=== PATIENT | female | born 1970 | race Caucasian/White ===

== ENCOUNTER → 2018-02-16 15:02 | Outpatient (CLI) | payer OTHER, SELFPAY ==
--- NOTE | 2018-02-16 | DI.MG.S_ITS ---
BILATERAL DIGITAL SCREENING MAMMOGRAM 3D/2D WITH CAD: 02/16/2018 CLINICAL: Routine screening. Comparison is made to exams dated: 01/28/2017 mammogram, 12/22/2015 mammogram - [facility], and 10/14/2014 mammogram - [facility]. The tissue of both breasts is heterogeneously dense. This may lower the sensitivity of mammography. Current study was also evaluated with a Computer Aided Detection (CAD) system. No significant masses, calcifications, or other findings are seen in either breast. There has been no significant interval change. IMPRESSION: NEGATIVE There is no mammographic evidence of malignancy. A 1 year screening mammogram is recommended. This exam was interpreted at Station ID: [id number]. NOTE: For mammograms, a report in lay terms will be sent to the patient. Approximately 15% of breast malignancies will not be visualized mammographically. In the management of a palpable breast mass, a negative mammogram must not discourage biopsy of a clinically suspicious lesion. Electronically Signed By: Nancy fournier/rubina:02/16/2018 15:42:19 letter sent: Normal Exam ACR BI-RADS Category 1: Negative 3341F
== END ==
PROVIDERS: PCP Physician Assistant; Visit Provider Physician Assistant
DX: Z12.31 Encounter for screening mammogram for malignant neoplasm of breast (principal)
CPT/HCPCS: 77063; 77067

== ENCOUNTER → 2019-03-23 07:37 | Outpatient (CLI) | payer OTHER, SELFPAY ==
--- NOTE | 2019-03-23 | DI.MG.S_ITS ---
BILATERAL DIGITAL SCREENING MAMMOGRAM 3D/2D WITH CAD: 03/23/2019 CLINICAL: Routine screening. Comparison is made to exams dated: 02/16/2018 mammogram, 01/28/2017 mammogram, and 12/22/2015 mammogram - [facility]. The tissue of both breasts is heterogeneously dense. This may lower the sensitivity of mammography. Current study was also evaluated with a Computer Aided Detection (CAD) system. No significant masses, calcifications, or other findings are seen in either breast. There has been no significant interval change. IMPRESSION: NEGATIVE There is no mammographic evidence of malignancy. A 1 year screening mammogram is recommended. This exam was interpreted at Station ID: [id number]. NOTE: For mammograms, a report in lay terms will be sent to the patient. Approximately 15% of breast malignancies will not be visualized mammographically. In the management of a palpable breast mass, a negative mammogram must not discourage biopsy of a clinically suspicious lesion. Electronically Signed By: Nancy fournier/rubina:03/23/2019 11:18:26 letter sent: Normal Exam ACR BI-RADS Category 1: Negative 3341F
== END ==
PROVIDERS: PCP Physician Assistant; Visit Provider Physician Assistant
DX: Z12.31 Encounter for screening mammogram for malignant neoplasm of breast (principal)
CPT/HCPCS: 77063; 77067

== ENCOUNTER → 2020-04-21 09:11 | Outpatient (CLI) | payer OTHER, SELFPAY ==
--- NOTE | 2020-04-21 | DI.MG.S_ITS ---
BILATERAL DIGITAL SCREENING MAMMOGRAM 3D/2D WITH CAD: 04/21/2020 CLINICAL: Routine screening. Family history of breast cancer. Comparison is made to exams dated: 03/23/2019 mammogram, 02/16/2018 mammogram, 01/28/2017 mammogram, 12/22/2015 mammogram - [facility], and 10/14/2014 mammogram - [facility]. There are scattered fibroglandular elements in both breasts. Current study was also evaluated with a Computer Aided Detection (CAD) system. There are benign calcifications in both breasts. No significant masses, calcifications, or other findings are seen in either breast. There has been no significant interval change. IMPRESSION: BENIGN There is no mammographic evidence of malignancy. A 1 year screening mammogram is recommended. This exam was interpreted at Station ID: [id number]. NOTE: For mammograms, a report in lay terms will be sent to the patient. Approximately 15% of breast malignancies will not be visualized mammographically. In the management of a palpable breast mass, a negative mammogram must not discourage biopsy of a clinically suspicious lesion. Electronically Signed By: Leon singh/rubina:04/21/2020 12:37:16 letter sent: Normal Exam ACR BI-RADS Category 2: Benign Finding(s) 3342F
[2020-04-21 10:38] LABS: Add Manual Diff / Slide Review NO; Basophils Absolute Auto 0 /uL (0-100); Basophils Percent Auto 0.7 % (0-2); Eosinophils Absolute Auto 200 /uL (0-450); Eosinophils Percent Auto 4.3 % (2-4); Hematocrit 37.7 % (36-46); Hemoglobin 13.2 g/dL (12.0-16.0); Lymphocytes Absolute Auto 1500 /uL (1100-4500); Lymphocytes Percent Auto 29.5 % (25-40); Mean Corpuscular Hemoglobin 32.1 PG (26-34); Mean Corpuscular Volume 91.7 fL (80-100); Monocytes Absolute Auto 400 /uL (0-900); Monocytes Percent Auto 7.2 % (3-14); Neutrophils Absolute Auto 2900 /uL (1500-7000); Neutrophils Percent Auto 58.3 % (50-75); Platelet Count 311 X10^3/uL (150-400); Red Blood Cell Count 4.11 X10^6/uL (4.0-5.2); Red Cell Distribution Width 12.3 % (11.6-14.8)
[2020-04-21 10:56] LABS: Alanine Aminotransferase 17 IU/L (<35); Albumin 4.1 g/dL (3.5-5.0); Albumin Globulin Ratio 1.2 (1.0-2.8); Alkaline Phosphatase 85 U/L (38-126); Aspartate Aminotransferase 21 IU/L (14-36); BUN Creatinine Ratio 23.8 (6-22); Bilirubin Total 0.5 mg/dL (0.2-1.3); Blood Urea Nitrogen 15 mg/dL (7-17); Calcium 9.2 mg/dL (8.4-10.2); Carbon Dioxide 31 mmol/L (22-32); Chloride 103 mmol/L (98-107); Cholesterol 205 mg/dL (140-199); Estimated Glomerular Filt Rate > 60.0 mL/min (>60); Globulin 3.4 g/dL (1.7-4.1); Glucose 100 mg/dL (70-100); HDL Cholesterol 49 mg/dL (40-60); HEMOLYSIS < 15 (0-50); LDL Cholesterol Calculated 129 mg/dL (<100); Potassium 4.1 mmol/L (3.4-5.1); Sodium 138 mmol/L (137-145); Total Protein 7.5 g/dL (6.3-8.2); Triglycerides 135 mg/dL (35-150)
== END ==
PROVIDERS: PCP Physician Assistant; Referring Provider Specialist; Visit Provider Physician Assistant
DX: Z12.31 Encounter for screening mammogram for malignant neoplasm of breast (principal); Z80.3 Family history of malignant neoplasm of breast; N95.1 Menopausal and female climacteric states
CPT/HCPCS: 36415; 77063; 77067; 80053; 80061; 83001; 85025

== ENCOUNTER → 2020-06-12 09:44 | Outpatient (CLI) | payer OTHER, SELFPAY ==
[2020-06-12 11:34] LABS: COVID19 -Nasal RAPID Negative (Negative)
== END ==
PROVIDERS: PCP Physician Assistant; Visit Provider Specialist
DX: Z03.818 Encounter for observation for suspected exposure to other biological agents ruled out (principal)
CPT/HCPCS: 87635

== ENCOUNTER 2020-06-13 08:29 | Day surgery (SDC) | payer OTHER, SELFPAY ==
[2020-06-12 15:29] VITALS: BMI 31.6
[2020-06-13] MEDS: LACTATED RINGERS 1,000 ML 42 ML IV (08:50)
[2020-06-13 08:51] VITALS: BP 134/87; PULSE 70; RESP 16; TEMP 37.3; O2SAT 96; BMI 29.5
--- NOTE | 2020-06-13 09:00 | PM.PREOP ---
Pre-operative Note COVID-19 COVID-19 status: Negative Result date/Date tested (Pos, Neg/Pending): 06/12/20 Interval Note History & Physical reviewed/Exam performed by Physician: Yes Changes to H&P: No
--- NOTE | 2020-06-13 09:28 | SUR.OPER ---
Lithotomy on padded OR bed, head on pillow, arms secured on padded arm boards at <90 degrees abduction. Legs secured in padded yellow fins stirrups.
--- NOTE | 2020-06-13 09:32 | PM.OP.1 ---
Operative Date/Time/Diagnoses Date of procedure: 06/13/20 Time of procedure: 09:32 Pre-op diagnosis: Retained IUD Post-op diagnosis: same Procedure & Clinicians Procedure: Cervical dilation with removal of retained IUD Same procedure as scheduled: No (No hysteroscopy was required) Indications: Retained IUD unable to be removed in the office Surgeon: Cathy Ingram Click Yes if Unassisted: Yes Anesthesia Type: General Operative Notes Findings: Normal exam under anesthesia. Retained IUD. Closure Type: not applicable Specimen(s): none sent Estimated Blood Loss (mL): 0 Blood products transfused: none Procedure in detail: Patient was brought to the operating room where she underwent general anesthesia. She was placed in low Yellofin stirrups and prepped and draped in the usual sterile fashion. A check system was reviewed with the staff in the room prior to beginning the case. A single-tooth tenaculum was placed on the anterior lip of the cervix and the cervix was dilated to a number 8 Hegar dilator. Polyp forceps were placed in the uterus and the IUD was grasped and removed without difficulty. Patient went to recovery room in stable condition. Counts of instruments and sponges were correct. Complications: none Post-operative Condition: stable Disposition: same day surgery Plan for aftercare: Home when awake and stable
[2020-06-13 09:35] VITALS: BP 121/75; PULSE 65; RESP 8; TEMP 36.2; O2SAT 95
[2020-06-13 09:40] VITALS: BP 125/79; PULSE 66; RESP 10; TEMP 36.2; O2SAT 95
[2020-06-13 09:45] VITALS: BP 118/78; PULSE 63; RESP 9; TEMP 36.2; O2SAT 96
[2020-06-13 09:49] VITALS: BP 120/82; PULSE 62; RESP 12; TEMP 36.2; O2SAT 96
== END 2020-06-13 10:03 | disposition home or self-care (01) ==
PROVIDERS: PCP Physician Assistant; Referring Provider Physician Assistant; Visit Provider Specialist
PROC: 0UDB8ZZ Extraction of Endometrium, Via Natural or Artificial Opening Endoscopic (ICD-10-PCS; CPT 58558; principal; 2020-06-13 09:45)
DX: Z30.432 Encounter for removal of intrauterine contraceptive device (principal)
CPT/HCPCS: 58301; J1100; J1885; J2405; J2704; J3010

== ENCOUNTER → 2021-05-27 16:07 | Outpatient (CLI) | payer OTHER, SELFPAY ==
--- NOTE | 2021-05-27 | DI.MG.S_ITS ---
BILATERAL DIGITAL SCREENING MAMMOGRAM 3D/2D WITH CAD: 05/27/2021 CLINICAL: Routine screening. Family history of breast cancer. Comparison is made to exams dated: 03/23/2019 mammogram, 02/16/2018 mammogram, and 04/21/2020 mammogram - [facility]. There are scattered fibroglandular elements in both breasts. Current study was also evaluated with a Computer Aided Detection (CAD) system. There are benign calcifications in both breasts. No significant masses, calcifications, or other findings are seen in either breast. There has been no significant interval change. IMPRESSION: BENIGN There is no mammographic evidence of malignancy. A 1 year screening mammogram is recommended. This exam was interpreted at Station ID: [id number]. NOTE: For mammograms, a report in lay terms will be sent to the patient. Approximately 15% of breast malignancies will not be visualized mammographically. In the management of a palpable breast mass, a negative mammogram must not discourage biopsy of a clinically suspicious lesion. Electronically Signed By: Claus galvez/rubina:05/27/2021 17:01:49 letter sent: Normal Exam ACR BI-RADS Category 2: Benign Finding(s) 3342F
== END ==
PROVIDERS: PCP Physician Assistant; Referring Provider Physician Assistant; Visit Provider Physician Assistant
DX: Z12.31 Encounter for screening mammogram for malignant neoplasm of breast (principal); Z80.3 Family history of malignant neoplasm of breast
CPT/HCPCS: 77063; 77067

== ENCOUNTER → 2022-06-09 07:23 | Outpatient (CLI) | payer OTHER, SELFPAY ==
--- NOTE | 2022-06-09 | DI.MG.S_ITS ---
BILATERAL DIGITAL SCREENING MAMMOGRAM 3D/2D WITH CAD: 06/09/2022 CLINICAL: Routine screening. Family history of breast cancer. Comparison is made to exams dated: 05/27/2021 mammogram, 04/21/2020 mammogram, and 03/23/2019 mammogram - [facility]. There are scattered areas of fibroglandular density in both breasts (category b / 25%-50% glandular tissue). Current study was also evaluated with a Computer Aided Detection (CAD) system. There are benign calcifications in both breasts. No significant masses, calcifications, or other findings are seen in either breast. There has been no significant interval change. IMPRESSION: BENIGN There is no mammographic evidence of malignancy. A 1 year screening mammogram is recommended. Based on Tyrer-Cuzick model (a risk assessment model), the patient's lifetime risk is 20.3% and her 10 year risk is 5.2%. If a patient has an elevated risk, a more comprehensive evaluation should be considered and/or a referral to a genetic counselor. The [employer], [employer], and NCCN Guidelines advise the consideration of Breast MRI as an adjunct to screening mammography in patients whose Lifetime risk to develop breast cancer is 20% or higher. This exam was interpreted at Station ID: [id number]. NOTE: For mammograms, a report in lay terms will be sent to the patient. Approximately 15% of breast malignancies will not be visualized mammographically. In the management of a palpable breast mass, a negative mammogram must not discourage biopsy of a clinically suspicious lesion. Electronically Signed By: Claus galvez/rubina:06/09/2022 15:41:39 letter sent: Normal Exam ACR BI-RADS Category 2: Benign Finding(s) 3342F
== END ==
PROVIDERS: PCP Physician Assistant; Referring Provider Physician Assistant; Visit Provider Physician Assistant
DX: Z12.31 Encounter for screening mammogram for malignant neoplasm of breast (principal); Z80.3 Family history of malignant neoplasm of breast
CPT/HCPCS: 77063; 77067

== ENCOUNTER → 2023-06-16 11:49 | Outpatient (CLI) | payer OTHER, SELFPAY ==
--- NOTE | 2023-06-16 | DI.MG.S_ITS ---
BILATERAL DIGITAL SCREENING MAMMOGRAM 3D/2D WITH CAD: 06/16/2023 CLINICAL: Routine screening. Family history of breast cancer. Comparison is made to exams dated: 06/09/2022 mammogram, 05/27/2021 mammogram, and 04/21/2020 mammogram - [facility]. There are scattered areas of fibroglandular density in both breasts (category b / 25%-50% glandular tissue). Current study was also evaluated with a Computer Aided Detection (CAD) system. No significant masses, calcifications, or other findings are seen in either breast. IMPRESSION: NEGATIVE There is no mammographic evidence of malignancy. A 1 year screening mammogram is recommended. Based on Tyrer-Cuzick model (a risk assessment model), the patient's lifetime risk is 20.3% and her 10 year risk is 5.5%. If a patient has an elevated risk, a more comprehensive evaluation should be considered and/or a referral to a genetic counselor. The [employer], [employer], and NCCN Guidelines advise the consideration of Breast MRI as an adjunct to screening mammography in patients whose Lifetime risk to develop breast cancer is 20% or higher. This exam was interpreted at Station ID: [id number]. NOTE: For mammograms, a report in lay terms will be sent to the patient. Approximately 15% of breast malignancies will not be visualized mammographically. In the management of a palpable breast mass, a negative mammogram must not discourage biopsy of a clinically suspicious lesion. Electronically Signed By: Trista Christianson M.D., PH.D amador/rubina:06/17/2023 00:13:53 letter sent: Normal Exam ACR BI-RADS Category 1: Negative 3341F
== END ==
PROVIDERS: PCP Student in an Organized Health Care Education/Training Program; Referring Provider Student in an Organized Health Care Education/Training Program; Visit Provider Student in an Organized Health Care Education/Training Program
DX: Z12.31 Encounter for screening mammogram for malignant neoplasm of breast (principal); Z80.3 Family history of malignant neoplasm of breast
CPT/HCPCS: 77063; 77067

== ENCOUNTER → 2023-11-24 16:49 | Outpatient (CLI) | payer OTHER, SELFPAY ==
[2023-11-24 21:52] LABS: Follicle Stimulating Hormone 63.7 mIU/mL
[2023-11-25 14:14] LABS: Cancer Antigen 125 14.2 U/mL (0-35)
== END ==
PROVIDERS: PCP Student in an Organized Health Care Education/Training Program; Referring Provider Obstetrics & Gynecology; Visit Provider Obstetrics & Gynecology
DX: N83.8 Other noninflammatory disorders of ovary, fallopian tube and broad ligament (principal)
CPT/HCPCS: 36415; 83001; 86304

== ENCOUNTER 2024-03-19 09:39 | Day surgery (SDC) | payer OTHER, SELFPAY ==
[2024-03-19] VITALS (10 sets, daily range): BP systolic 131–152; BP diastolic 60–92; PULSE 65–98; RESP 12–20; TEMP 36.1–36.3; O2SAT 94–99; BMI 29.2
--- NOTE | 2024-03-19 | PATH_ITS ---
[facility] Accession Number: [id number] No. of containers..01 Tissue . 01 Material submitted: . body - RT PARATUBAL CYST, RT AND LT OVARIES, RT AND LT FALLOPIAN TUBES . 01 Diagnosis: BILATERAL SALPINGO-OOPHORECTOMIES, BILATERAL LAPAROSCOPIC SALPINGO-OOPHORECTOMIES: Left fallopian tube, complete cross sections, with multiple benign paratubal cysts (1-2 mm). Left ovary with a benign follicular cyst and patchy stromal thecosis. Right fallopian tube, complete cross sections, with multiple paratubal cysts (1-44 mm). Right ovary with two benign serous cysts (3 mm and 7 mm in greatest dimension) and with capsular involvement by endosalpingiosis. [facility] 03/21/2024 1647 Local . 01 Electronically signed: . Katheryn Ronquillo MD, Pathologist NPI- [id number] . 01 Gross description: . Received in formalin with two patient identifiers and right paratubal cyst, right and left ovaries, right and left fallopian tubes, are two tubo-ovarian units. The presumed right tubo-ovarian unit (tube: 7.2 x 3.5 cm, ovary: 4 grams, 3.2 x 1.8 x 1.4 cm) has a large paratubal cyst (4.4 x 4.1 x 3.9 cm. The presumed left tube is 4.5 x 0.9 cm, and the presumed left ovary is 3 grams and 2.7 x 1.8 x 0.9 cm. The left tube and ovary are inked blue while the right tube and ovary are inked green. . Both tubes have violaceous, smooth serosa with cysts ranging from 0.1 to 4.4 cm in greatest dimension filled with cloudy serous fluid. The left ovary has a segovia, cerebriform external surface, and the cut surface is physiologic and unremarkable. . The right tube has an unremarkable stellate lumen. The right ovary has a segovia cerebriform external surface and sectioning reveals two thin, smooth-walled cystic structures, 0.3 to 0.7 cm in greatest dimension filled with clear serous fluid. No additional lesions identified. . Kick Plate Installer sections are submitted as follows: A1: Left fallopian tube to include one-half of bisected fimbriae and cross sections. A2: Left ovary. A3: Right fallopian tube to include one-half of bisected fimbriae and unremarkable cross sections. A4: Large paratubal cyst. A5: Right ovary. ([id number]) /MRV 03/20/2024 [facility]2 Local . 01 Pathologist provided ICD-10: R10.2, N83.201, Z30.432 . 01 CPT . 839065 Specimen Comment: A courtesy copy of this report has been sent to [phone] Performed at: [address] [id number] MD Dami Dugan MD Phone: [phone]
[2024-03-19] MEDS: LACTATED RINGERS 1,000 ML 42 ML IV ×2 (10:07→13:13)
[2024-03-19] MEDS: ACETAMINOPHEN 325 MG TABLET 975 MG PO (11:02)
[2024-03-19] MEDS: SCOPOLAMINE 1 PATCH TOP (11:02)
--- NOTE | 2024-03-19 11:16 | PM.GYNHP.1 ---
History of Present Illness History of Present Illness Reason for admission: pelvic mass Narrative: Jaime Dover is a 53 year old female 1 para 0 with a right ovarian cyst. She presents for a laparoscopic removal of both tubes and ovaries and removal of Mirena IUD. [facility] Medical History (Updated 03/14/24 @ 10:06 by Kelly Alanis RN) Depression Surgical History (Updated 11/08/17 @ 06:10 by Conversion Provider) Status post loop electrosurgical excision procedure (LEEP) of cervix Status post hernia repair Family History (Updated 12/10/15 @ 00:00 by Conversion Provider) Father Age: 72 Hypertension High cholesterol Social History household members: spouse Smoking Status: Former smoker alcohol intake: current Meds Home Medications and Allergies Home Medications Medication Instructions Recorded Confirmed Type paroxetine HCl 20 mg tablet 20 mg PO DAILY 04/21/20 03/19/24 History estradiol 0.01% (0.1 mg/gram) 0.5 g vaginal 2XW #42.5 grams 11/28/23 03/19/24 Rx vaginal cream (Estrace) nystatin 100,000 unit/gram topical 1 applic topical BID #30 grams 01/16/24 03/19/24 Rx cream Allergies Allergy/AdvReac Type Severity Reaction Status Date / Time acetaminophen [From VICODIN] Allergy Unknown Nausea Verified 03/19/24 10:01 hydrocodone [From VICODIN] Allergy Unknown Nausea Verified 03/19/24 10:01 adhesive tape AdvReac Rash Verified 03/19/24 10:01 Exam Vital Signs (past 8 hours): - 03/19/24 10:10 Temperature 97.4 F L Pulse Rate 84 Respiratory Rate 16 Blood Pressure 144/78 H Pulse Oximetry 99 Oxygen Delivery Method Room Air Oxygen Delivery Method Room Air Narrative Exam Narrative: HEENT: No thyromegaly, no anterior cervical or supraclavicular lymphadenopathy. Lungs:Clear to auscultation bilaterally, no wheezes. Cardiovascular: Regular rate and rhythm, no murmurs, rubs, or gallops. Abdomen: Well-healed right inguinal scar. No hepatosplenomegaly. No masses palpable. External genitalia: Normal Vagina: Normal Cervix: Normal Bimanual exam: 8 Week size anteverted uterus. Mobile. Right adnexal fullness Extremities: No edema Assessment & Plan Assessment & Plan narrative: Assessment: 53-year-old 1 para 0 with a 5 cm right ovarian cyst Mirena IUD in place Menopausal Plan: Laparoscopic bilateral salpingo-oophorectomy Removal of Mirena IUD The risks, benefits, and alternatives to the procedure were explained to the patient. The risks including bleeding, infection, injury to the bowel, bladder, or ureters. She understands these risks and agrees to proceed. A full PAR- Q was held and consent form was signed. Time-Based Coding :: [TOTAL MINUTES] spent with patient and on the chart (including review of chart, obtaining history, exam, reviewing outside data, placing orders, documenting exam and treatment plan, and counseling patient) on [DATE].
--- NOTE | 2024-03-19 11:19 | PM.PREOP ---
Pre-operative Note Interval Note History & Physical reviewed/Exam performed by Physician: Yes Changes to H&P: No H&P completed within 30 days and has changed as indicated here:: 03/19/24
--- NOTE | 2024-03-19 11:42 | SUR.OPER ---
Lithotomy on padded OR bed, head on pillow, arms padded and tucked at sides. Legs secured in padded yellow fins stirrups.
[2024-03-19] MEDS: BUPIVACAINE 0.5% (PF) 30 ML, EPINEPHrine 0.15 MG INJ (12:03)
--- NOTE | 2024-03-19 12:50 | P.OP_ITS ---
Operative Date/Time/Diagnoses Date of procedure: 03/19/24 Time of procedure: 12:50 Pre-op diagnosis: Right adnexal mass Mirena IUD in place Post-op diagnosis: same Procedure & Clinicians Procedure: Procedures Operation Date: 03/19/24 11:45 Actual Procedure Side Surgeon p Laparoscopic Salpingectomy-oophorectomy Bilateral Gissell Reyna MD s Intrauterine Device Removal Gissell Reyna MD Surgeon: Gissell Reyna Anesthesia Type: General and Local Operative Notes Findings: 8 wk size uterus Lower uterine segment fibroids, 3cm on left, 2cm on right Normal liver and gallbladder Normal appendix 8cm right paratubal cyst Normal left tube and ovary Normal right ovary Closure Type: primary Specimen(s): left tube & ovary and right tube & ovary Applied: catheter (in/out) Estimated blood loss (mL): 5 Blood products transfused: none Procedure in detail: After informed consent was obtained, the patient was taken to the operating room where she was placed in the dorsal supine position. After adequate general endotracheal anesthesia was achieved, she was placed in the dorsal lithotomy position, and prepped and draped in the usual sterile fashion. A time-out was performed. A bivalve speculum was placed into the vagina. The IUD strings were visible and they were grasped with the polyp forceps and the IUD was removed without difficulty. The cervical os was sequentially dilated until the Zumi uterine manipulator could pass easily into the endometrial cavity. The single- tooth tenaculum was removed from the anterior lip of the cervix. The bivalve speculum was removed from the vagina. Attention was then turned to the abdomen where 6 cc of 0.5% Marcaine with epinephrine were injected in the umbilical fold. A 5 mm incision was made. The Veress needle was placed into the peritoneal cavity, and its placement confirmed by aspiration and drop test. The abdominal cavity was insufflated with 3.2 L of CO2. The Veress needle was removed, and a 5 mm trocar was placed without difficulty. The pelvis and abdomen were examined with the findings noted above. Two other incisions were made 4 cm lateral to the midline after 6 cc of 0.5% Marcaine with epinephrine were injected and 2 5 mm trocars were placed under direct visualization. The right tube and ovary were grasped with an atraumatic grasper. The infundibulopelvic ligament on the right side was cauterized and cut. The mesosalpinx was cauterized and cut all the way down to the cornua of the uterus. The tube was amputated at the cornua. Hemostasis was achieved. This was repeated on the patient's left side. No bleeding was noted. 6 cc of 0.5% Marcaine with epinephrine were injected 2 cm above the pubic symphysis. A 2 cm incision was made. A 12 mm trocar was placed under direct visualization. The small endobag was placed through the suprapubic trocar and both tubes and ovaries were placed into the bag. The bag was closed. The trocar was removed. The bag was brought up through the fascia without difficulty. The fascia was closed with 0 Vicryl in a running fashion. The pelvis was examined and there was no bleeding noted. The gallbladder, liver, and appendix were examined and were found to be normal. The instruments were removed from the abdomen. The CO2 was allowed to escape. The incisions were closed with 4-0 Monocryl in a subcuticular fashion. Steri-Strips and Allevyn dressings were placed. The Zumi uterine manipulator was removed from the uterus. Sponge, lap, and instrument counts were correct x2. The patient tolerated the procedure well, and was taken to PACU in stable condition. Complications: none Post-operative Condition: stable Disposition: PACU Plan for aftercare: Home after recovery
[2024-03-19] MEDS: OXYCODONE IR 5 MG TABLET PO ×2 (13:03→13:49)
[2024-03-19] MEDS: HYDROMORPHONE 1 MG INJ IV (13:05)
== END 2024-03-19 13:55 | disposition home or self-care (01) ==
PROVIDERS: PCP Student in an Organized Health Care Education/Training Program; Referring Provider Obstetrics & Gynecology; Visit Provider Obstetrics & Gynecology
PROC: 0UT74ZZ Resection of Bilateral Fallopian Tubes, Percutaneous Endoscopic Approach (ICD-10-PCS; CPT 58661; principal; 2024-03-19 11:45)
PROC: (CPT 58661; 2024-03-19 11:45)
DX: N83.201 Unspecified ovarian cyst, right side (principal); Z30.432 Encounter for removal of intrauterine contraceptive device; N83.8 Other noninflammatory disorders of ovary, fallopian tube and broad ligament; N83.02 Follicular cyst of left ovary; N94.89 Other specified conditions associated with female genital organs and menstrual cycle
CPT/HCPCS: 58661; 58301; J0171; J1100; J1170; J1885; J2405; J2704; J3010; J3490

== ENCOUNTER → 2024-07-12 15:49 | Outpatient (CLI) | payer OTHER, SELFPAY ==
--- NOTE | 2024-07-12 15:50 | DI.MG.S_ITS ---
BILATERAL DIGITAL SCREENING MAMMOGRAM 3D/2D WITH CAD: 07/12/2024 CLINICAL: Routine screening. Family history of breast cancer. Comparison is made to exams dated: 06/16/2023 mammogram, 06/09/2022 mammogram, 05/27/2021 mammogram, and 01/28/2017 mammogram - [facility]. There are scattered areas of fibroglandular density (category b / 25%-50% glandular tissue). Current study was also evaluated with a Computer Aided Detection (CAD) system. No significant masses, calcifications, or other findings are seen in either breast. There has been no significant interval change. IMPRESSION: NEGATIVE There is no mammographic evidence of malignancy. A 1 year screening mammogram is recommended. Based on the Tyrer Cuzick model (a risk assessment model) the patient's lifetime risk is 17.4% and her 10 year risk is 4.9%. According to the ACR, ACS, and NCCN guidelines, an annual breast MRI exam along with mammogram is recommended if the patient's lifetime risk is 20% or greater. This exam was interpreted at Station ID: [id number]. NOTE: For mammograms, a report in lay terms will be sent to the patient. Approximately 15% of breast malignancies will not be visualized mammographically. In the management of a palpable breast mass, a negative mammogram must not discourage biopsy of a clinically suspicious lesion. Electronically Signed By: Hamlet jordan/rubina:07/13/2024 08:29:30 letter sent: Normal Exam ACR BI-RADS Category 1: Negative
== END ==
LOC: MAMMO 15:49
PROVIDERS: PCP Student in an Organized Health Care Education/Training Program; Referring Provider Student in an Organized Health Care Education/Training Program; Visit Provider Student in an Organized Health Care Education/Training Program
DX: Z12.31 Encounter for screening mammogram for malignant neoplasm of breast (principal); Z80.3 Family history of malignant neoplasm of breast
CPT/HCPCS: 77063; 77067